=== PATIENT | female | born 1945 | race Hispanic/Latino ===

== ENCOUNTER 2018-03-11 10:03 | Outpatient (CLI) | payer MEDICARE | END 2018-03-11 10:04 | disposition home or self-care (01) | LOC: C.PAT 10:03 | DX: N30.20 Other chronic cystitis without hematuria (principal) ==

== ENCOUNTER 2018-03-17 06:11 | Day surgery (SDC) | payer MEDICARE ==
[2018-03-11 10:11] VITALS: BMI 24.4
[2018-03-17] MEDS ORDERED: Iohexol 240 (50 ml) ONE (07:41)
[2018-03-17] MEDS ORDERED: cefTRIAXone 1 gm 1 GM/100 ML BAG IVPB ONE (07:41)
[2018-03-17] MEDS ORDERED: Propofol 10 mg/ml Inj (20 ML) ONE (07:53)
[2018-03-17] MEDS ORDERED: Iohexol 240 200 ML ONE (08:08)
[2018-03-17] MEDS ORDERED: Lactated Ringer's 1,000 ML IV ONE (09:02)
--- NOTE | 2018-03-17 09:25 | PCM.SURG1 ---
Surgeon's Initial Post Op Note - Surgeon's Notes Surgeon: Catarino Hylton Shoe Trimmer: none Type of Anesthesia: General Mask Pre-Operative Diagnosis: UTI. Incontinence Operative Findings: same. cystitis. trabec bladder w diverticula. patulous urethra Post-Operative Diagnosis: same Operation Performed: cystogram. cystoscopy. bilat rtg pyelogram. bladder bx and fulg. EUA Specimen/Specimens Removed: urine, bladder bx Estimated Blood Loss: EBL {In ML}: 0 Blood Products Given: N/A Drains Used: No Drains Post-Op Condition: Good Date of Surgery/Procedure: 03/17/18 Time of Surgery/Procedure: 09:10
[2018-03-17] MEDS ORDERED: Lactated Ringer's 1,000 ML IV SCH (10:00)
[2018-03-17 10:12] VITALS: O2SAT 97
[2018-03-17 11:23] VITALS: BP 126/74; PULSE 69; RESP 15; TEMP 97.5
--- NOTE | 2018-03-19 17:12 | RAD ---
Date of service: 03/17/2018 PROCEDURE: Intraoperative fluoroscopy HISTORY: CYSTITIS,UTI COMPARISON: None TECHNIQUE: Intraoperative fluoroscopy was provided for cystography and retrograde pyelo ureteral atrophy. Total time of fluoroscopy was 24.9 sec. Cumulative dose was 0.74521 mGy meter squared FINDINGS: . multiple fluoroscopic spot films are submitted demonstrating cystogram and retrograde pyelo ureteral atrophy. Films are on file for review. IMPRESSION: Zane rosa
--- NOTE | 2018-03-20 06:47 | OP ---
PROCEDURE DATE: 03/17/2018 PREOPERATIVE DIAGNOSES: Urinary incontinence, recurrent urinary tract infection. POSTOPERATIVE DIAGNOSES: Urinary incontinence, recurrent urinary tract infection, cystitis, bladder diverticulum. OPERATIVE SURGEON: Melia Hylton MD PROCEDURES: Cystogram. Cystometrogram. Cystoscopy. Bilateral retrograde pyelogram. Bladder biopsy and fulguration. Exam under anesthesia. DESCRIPTION OF PROCEDURE: Procedure as follows: The patient was in the spine position. A Quesada catheter was inserted per urethra. The residual within the bladder was less than 15 mL. The cystogram and cystometrogram was performed as follows. A cystometry was performed with filling of the bladder with liquid. The urodynamic equipment was not available. Iodinated contrast dye was instilled into the bladder. Under fluoroscopy, views of the bladder were obtained in PA and oblique views. FINDINGS: The patient had a first urge to void at a volume of approximately 60 mL. The patient has strong desire to void at volume of 90 mL. Thereafter, the patient, had a volume of greater than 100 mL. The patient began to void around the Quesada catheter. This was viewed on fluoroscopy as well as contrast filling the vagina. The bladder contour was normal. There was evidence of a longitudinal possible filling defect noted on the PA view. This finding was not confirmed on oblique views. There was no vesicoureteral reflux. There was no significant bladder descensus. The catheter was removed. Post drainage film was obtained as well and demonstrated contrast within the vagina. The patient was then placed in lithotomy position. Genitalia prepped and sterilely. Anesthesia was applied by the anesthesiologist. A 22-[place] cystoscope sheath was introduced per urethra. Urethra was noted to be mildly patulous. The bladder was inspected with 30-degree and 70-degree lenses. FINDINGS: There was noted to be moderate to severe cystitis. There were multiple diverticula. Some are wide-mouth and were able to be entered and inspected. Some were small and narrow-mouthed. The trigone demonstrated [id number] inflammation with edema. The ureteral orifice were able to be identified. Iodinated contrast dye was instilled via cone-tip. Ureteral orifices were able to be identified. Iodinated contrast dye was instilled via cone-tip catheter into each ureteral orifice. The ureters and kidneys were viewed sequentially. Retrograde pyelogram demonstrated no evidence of obstruction of the ureters or the kidneys. There was no evidence of filling defect. There was good drainage noted on the post drainage film. A traffic workforce representative area of abnormal bladder mucosa from the floor of the bladder was obtained. Biopsy was obtained with cold cup biopsy forceps. Fulguration was performed with Ball electrode and electrocautery. There were other areas of hemorrhagic cystitis which were cauterized as well for hemostasis. The bladder was then drained. Cystoscope sheath removed. Exam under anesthesia was performed. There was some mild induration and fixation of the pelvis without discrete mass. The impression was severe cystitis, hemorrhagic cystitis. Possible radiation due to cystitis. Patulous urethra. Possible overactive bladder. Small capacity bladder. The patient was returned to the supine position. Pathology is pending. The patient will follow up. Melia Hylton MD
== END 2018-03-17 10:45 | disposition home or self-care (01) ==
LOC: C.SDS 06:11
PROVIDERS: ATTEND Urology
DX: N30.20 Other chronic cystitis without hematuria (principal)
CPT/HCPCS: 51725; 52005; 52204; 82948; 87086; 88305; J7120